=== PATIENT | female | born 1990 | race Caucasian/White ===

== ENCOUNTER 2020-06-03 17:42 | Inpatient (IN) | payer BC ==
[2020-06-03] MEDS ORDERED: RINGERS SOLUTION,LACTATED 1,000 ML IV PRN (17:54)
[2020-06-03] MEDS ORDERED: DINOPROSTONE 10 MG VAGINAL INSERT.SR PV ONE (18:15)
[2020-06-03] MEDS ORDERED: OXYTOCIN 10 UNIT/ML VIAL ONE (18:21)
[2020-06-03] MEDS ORDERED: LIDOCAINE 1% INJ-PF (10 MG/ML) 30 ML SDV ONE (18:22)
[2020-06-03] MEDS ORDERED: OXYTOCIN/0.9 % SODIUM CHLORIDE 30 UNIT/500 ML RTUINJ ONE (18:22)
[2020-06-03] MEDS ORDERED: MISOPROSTOL 0.2 MG TABLET ONE (18:22)
[2020-06-03] MEDS ORDERED: DINOPROSTONE 10 MG VAGINAL INSERT.SR ONE (18:41)
[2020-06-03 19:01] LABS: ABSOLUTE EOSINOPHILS # (AUTO) 0.1 10^3/uL (0.0-0.6); ABSOLUTE LYMPHOCYTES (AUTO) 1.6 10^3/uL (0.5-4.7); ABSOLUTE MONOCYTES (AUTO) 0.6 10^3/uL (0.1-1.4); ABSOLUTE NEUT (AUTO) 4.3 10^3/uL (1.7-8.2); BASOPHILS % (AUTO) 0.3 % (0-2); EOSINOPHILS % (AUTO) 1.8 % (0-6); HEMATOCRIT 35.4 % (36.0-47.0); HEMOGLOBIN 12.2 g/dL (12.0-15.5); LYMPHOCYTES % (AUTO) 23.9 % (13-45); MEAN CORPUSCULAR HEMOGLOBIN 30.9 pg (27.0-33.4); MEAN CORPUSCULAR HGB CONC 34.6 g/dL (32.0-36.0); MEAN CORPUSCULAR VOLUME 89 fl (80-97); MONOCYTES % (AUTO) 8.6 % (3-13); PLATELET COUNT 238 10^3/uL (150-450); RED BLOOD COUNT 3.96 10^6/uL (3.72-5.28); RED CELL DISTRIBUTION WIDTH 13.2 % (11.5-14.0); SEGMENTED NEUTROPHILS % (AUTO) 65.4 % (42-78); TOTAL CELLS COUNTED % (AUTO) 100 %; WHITE BLOOD COUNT 6.6 10^3/uL (4.0-10.5)
[2020-06-03 19:33] LABS: URINE AMPHETAMINES SCREEN NEGATIVE; URINE BARBITURATES SCREEN NEGATIVE; URINE BENZODIAZEPINES SCREEN NEGATIVE; URINE COCAINE SCREEN NEGATIVE; URINE MARIJUANA (THC) SCREEN NEGATIVE; URINE METHADONE SCREEN NEGATIVE; URINE PHENCYCLIDINE SCREEN NEGATIVE
--- NOTE | 2020-06-03 21:12 | Admission Physical ---
Datetime Report Generated by CPN: 06/03/2020 21:11 CURRENT ADMISSION Chief Complaint: Scheduled Induction of Labor Indication for Induction: Postterm Admit Plan: Admit to Unit; Initiate Labor Induction Protocol ALLERGIES Medication Allergies: No Medication Allergies: No Known Allergies (09/05/2015) Latex: No Latex Allergies OBSTETRICAL HISTORY EDC: 05/27/2020 00:00 : 1 Para: 0 Term: 0 : 0 SAB: 0 IAB: 0 Cesareans: 0 VBACs: 0 Gestational Diabetes: No Rh Sensitization: No Incompetent Cervix: No REA: No Infertility: No ART Treatment: No Uterine Anomaly: No IUGR: No Hx Previous C/S: No Macrosomia: No Hx Loss/Stillborn: No PIH: No Hx : No Placenta Previa/Abruption: No Depression/PP Depression: No PTL/PROM: No Post Hemorrhage: No Obstetrical History Comments: G1: current SEE RECORDS Alcohol: No Marijuana : No Cocaine: No Other Illicit Drugs: No Cigarettes: Never Smoker. 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 Heart Disease: No Hosp/Surgery: No Autoimmune Disorder: No Anesthetic Complications: No Kidney Disease: No Abnormal Pap Smear: No Neuro/Epilepsy: No Psychiatric Disorders: No Other Medical Diseases: No Hepatitis/Liver Disease: No Significant Family History: No Varicosities/Phlebitis: No Trauma/Violence : No Thyroid Dysfunction: No INFECTIOUS HISTORY Gonorrhea: No Genital Herpes: No Chlamydia: No Tuberculosis: No Syphilis: No Hepatitis: No HIV/AIDS Exposure: No Rash or Viral Illness: No HPV: Yes PHYSICAL EXAM General: Normal HEENT: Normal Neurologic: Normal Thyroid: Normal Heart: Normal Lungs: Normal Breast: Normal Back: Normal Abdomen: Normal Genitourinary Exam: Normal Extremities: Normal DTRs: Normal Pelvic Type: Adequate Vital Signs: Reviewed; Within Normal Limits VAGINAL EXAM Dilatation: 1 Effacement: 0 Station: -3 Contraction Comments: Irregular contractions MEMBRANES Membranes: Intact FETUS A EGA: 41.0 Monitoring: External US FHR- Baseline: 130 Variability: Moderate 6-25bpm Accelerations: 15X15 Presentation: Vertex Admit Comment: 30 yo G1 at 41 wks EGA here for IOL due to post dates -Admit to LDR -NPO except sips and chips. IVFs: LR @ 125 cc/hr -CEFM and toco -GBS negative -Cervix 1//hi, cervidil 10mg placed at 1830 -Desires epidural prn Pain -Anticipate PLANS FOR LABOR AND DELIVERY Labor and Delivery: None Pain Management: Medications; Epidural Feeding Preference: Breast Circumcision: Yes INFORMED CONSENT Informed Consent Obtained: Vaginal Delivery; Induction of Labor; Risks, Benefits and Alternatives Discussed Signature: with User ID: [email or web address] : with User ID: [email or web address]
[2020-06-04] MEDS ORDERED: PROMETHAZINE HCL INJ 25 MG/1 ML VIAL ONE ×2 (08:53→13:43)
[2020-06-04] MEDS ORDERED: NALBUPHINE HCL INJ 10 MG/1 ML AMPULE INJ ONE (08:53)
[2020-06-04] MEDS ORDERED: NALBUPHINE HCL INJ 10 MG/1 ML AMPULE ONE ×2 (08:53→13:43)
[2020-06-04] MEDS ORDERED: PROMETHAZINE HCL INJ 25 MG/1 ML VIAL IV ONE ×2 (08:54→13:49)
[2020-06-04] MEDS ORDERED: OXYTOCIN/0.9 % SODIUM CHLORIDE 30 UNIT/500 ML RTUINJ IV PRN ×2 (09:00→22:36)
[2020-06-04] MEDS ORDERED: NALBUPHINE HCL INJ 10 MG/1 ML AMPULE IM ONE (13:48)
[2020-06-04] MEDS ORDERED: NALBUPHINE HCL INJ 10 MG/1 ML AMPULE IV ONE (13:49)
[2020-06-04] MEDS ORDERED: FENTANYL/BUPIVACAINE/NS/PF 300 MCG/150 ML RTUINJ EPI ONE (14:42)
[2020-06-04] MEDS ORDERED: EPHEDRINE SULFATE INJ 50 MG/1 ML AMPULE ONE (14:42)
[2020-06-04] MEDS ORDERED: ROPIVACAINE HCL 0.2% INJ/PF (2 MG/ML) 20 ML SDV ONE (14:42)
--- NOTE | 2020-06-04 17:19 | Admission Physical ---
Datetime Report Generated by CPN: 06/04/2020 17:19 CURRENT ADMISSION Chief Complaint: Scheduled Induction of Labor Indication for Induction: Postterm Admit Impression : Postterm, Intrauterine Admit Plan: Admit to Unit; Initiate Labor Induction Protocol ALLERGIES Medication Allergies: No Medication Allergies: No Known Allergies (09/05/2015) Latex: No Latex Allergies OBSTETRICAL HISTORY EDC: 05/27/2020 00:00 : 1 Para: 0 Term: 0 : 0 SAB: 0 IAB: 0 Cesareans: 0 VBACs: 0 Gestational Diabetes: No Rh Sensitization: No Incompetent Cervix: No REA: No Infertility: No ART Treatment: No Uterine Anomaly: No IUGR: No Hx Previous C/S: No Macrosomia: No Hx Loss/Stillborn: No PIH: No Hx : No Placenta Previa/Abruption: No Depression/PP Depression: No PTL/PROM: No Post Hemorrhage: No Current Procedures: Ultrasound Obstetrical History Comments: G1: current SEE RECORDS Alcohol: No Marijuana : No Cocaine: No Other Illicit Drugs: No Cigarettes: Never Smoker. 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 Heart Disease: No Hosp/Surgery: No Autoimmune Disorder: No Anesthetic Complications: No Kidney Disease: No Abnormal Pap Smear: No Neuro/Epilepsy: No Psychiatric Disorders: No Other Medical Diseases: No Hepatitis/Liver Disease: No Significant Family History: No Varicosities/Phlebitis: No Trauma/Violence : No Thyroid Dysfunction: No INFECTIOUS HISTORY Gonorrhea: No Genital Herpes: No Chlamydia: No Tuberculosis: No Syphilis: No Hepatitis: No HIV/AIDS Exposure: No Rash or Viral Illness: No HPV: Yes PHYSICAL EXAM General: Normal HEENT: Normal Neurologic: Normal Thyroid: Deferred Heart: Normal Lungs: Normal Breast: Deferred Back: Normal Abdomen: Normal Genitourinary Exam: Normal Extremities: Normal DTRs: Normal Pelvic Type: Adequate Vital Signs: Reviewed; Within Normal Limits VAGINAL EXAM Dilatation: 2 Effacement: 50 Station: -2 Contraction Comments: q2-3 mins MEMBRANES Membranes: Ruptured Amniotic Fluid Color: Clear FETUS A EGA: 41.1 Monitoring: External US FHR- Baseline: 125 Variability: Moderate 6-25bpm Accelerations: 15X15 Decelerations: Late; Variable FHR Category: Category II Estimated Weight (gm): 4000 Presentation: Vertex Admit Comment: at 41w admitted for IOL, now on pitocin 8mu/min, AROM at 1545 for clear fluid. P: cont pitocin IOL, anticipate PLANS FOR LABOR AND DELIVERY Labor and Delivery: None Pain Management: Medications; Epidural Feeding Preference: Breast Circumcision: Yes INFORMED CONSENT Informed Consent Obtained: Vaginal Delivery; Induction of Labor; Risks, Benefits and Alternatives Discussed Assignment: Bere Marx MD Signature: with User ID: [email or web address] : with User ID: [email or web address]
[2020-06-04] MEDS ORDERED: DIPHENHYDRAMINE HCL 50 MG/ML VIAL IV ONE (19:00)
[2020-06-04] MEDS ORDERED: DIPHENHYDRAMINE HCL 50 MG/ML VIAL ONE (19:01)
[2020-06-04] MEDS ORDERED: CITRIC ACID/SODIUM CITRATE ORAL SOLN 15 ML UDCUP ONE (20:27)
[2020-06-04] MEDS ORDERED: CEFAZOLIN INJ 1 GM VIAL ONE (20:27)
--- NOTE | 2020-06-04 20:27 | Operative Report ---
Operative Report DATE OF SURGERY: 06/04/20 PREOPERATIVE DIAGNOSIS: , 41+1ega, Failed IOL for post dates, NRFHTs, Failed 1 hr GTT (passed 3 hr) POSTOPERATIVE DIAGNOSIS: AB - delivered OPERATION: Primary section SURGEON: JOHANNA WHITNEY ANESTHESIA: Epidural TISSUE REMOVED OR ALTERED: placenta and cord COMPLICATIONS: mild uterine atony - resolved with cytotec ESTIMATED BLOOD LOSS: 700 QUANTITATIVE BLOOD LOSS: 1,040 INTRAOPERATIVE FINDINGS: normal bilateral tubes/ovaries, normal uterus. Apgars 7/9. VMI delivered at 2138, weight 4015g (8#14oz). PROCEDURE: Anesthesia provider: [Dr. Guthrie] Estimated blood loss: [700ml] Urine output: [200ml] IV fluids: [600ml] Indications: [30yo at 41+1ega who was admitted for IOL on 06/03 for cervidil and underwent cervidil IOL then pitocin on AM on 06/04. AROM performed at 1545 and cervical exam was 6cm. HR then noted to have repetitive late decelerations that were not responsive to position changes and matenral O2. Pitocin also discontinued due to NRFHTs. NO improvement of FHR tracing. Reviewed recommendations for Primary section for NRFHTs. She was counseled on the risks, benefits, alternatives and desires to proceed with planned procedure. ] Procedure: The patient was taken to the operating room where spinal anesthesia was obtained and found to be adequate (on second attempt at spinal). She was then prepped and draped in the normal sterile fashion and placed in the dorsal supine position with a leftward tilt. A Pfannenstiel skin incision was then made and carried through to the underlying layers of the fascia with the scalpel. The fascia was incised in the midline and the incision extended laterally with the Sparks scissors. The superior aspect of the fascial incision was then grasped with Juvenal clamps elevated and the underlying rectus muscles dissected off [bluntly]. Attention was then turned to the inferior aspect of the fascial incision which in a similar fashion was grasped, tented up with Juvenal clamps, and the rectus muscles dissected off [bluntly]. The rectus muscles were then in the midline and the peritoneum at the amount identified and entered [bluntly]. The peritoneal incision was then extended superiorly and inferiorly with good visualization of the bladder. The bladder blade was inserted and the vesicouterine peritoneum identified grasped with [place] pickups and entered sharply with the Metzenbaum scissors. This incision was then extended laterally with the Metzenbaum scissors and a bladder flap created digitally. The bladder blade was then reinserted and the lower uterine segment incised in a transverse fashion with the scalpel. The uterine incision was then extended bluntly. The bladder blade was removed and the infant's head was delivered from cephalic presentation atraumatically. The nose and mouth were suctioned and the cord doubly clamped and cut. And the infant was handed off to waiting pediatricians. The placenta was then delivered spontaneously and the uterus exteriorized and cleared of all clots and debris. The uterine incision was then repaired with 1- 0 Vicryl in a running locked fashion. A second layer of the same suture was used to obtain hemostasis via imbrication of the initial layer. The bladder flap was then repaired with 3-0 chromic in a running fashion. The uterus was returned to the patient's abdomen and Surgicel placed for hemostasis. The gutters were cleared of all clots and debris. All operative sites were noted to be hemostatic. The fascia was reapproximated with 0 Vicryl in a running fashion from each lateral edge to the midline. The skin was closed with 3-0 Mon ocryl in a running subcuticular fashion with overlying Exofin for additional dressing as well as wound closure. The patient tolerated the procedure well. Sponge lap needle and instrument counts are correct times 2. 3 g of Ancef were given prior to skin incision. The patient was taken to the recovery area awake and in stable condition.
--- NOTE | 2020-06-04 20:30 | L&D Progress Notes ---
PROGRESS NOTES Datetime Report Generated by CPN: 06/04/2020 20:30 PROGRESS NOTE Impression: Non-reassuring Heart Rate Procedures: Sterile Vag Exam Plan: Deliver- Section Informed Consent Obtained: Section Delivery Vital Signs : Reviewed Comment: 41+1, here for IOL. She has been unchanged since 1545 and now with repetitive late decelerations despite interventions and discontinuation of pitocin. She was counseled and desreis to proceed with planned procedure of Primary section for NRFHTs. VAGINAL EXAM Dilatation: 2 Effacement: 50 Station: -2 Contractions: q2-3 mins LAST VAGINAL EXAM-NURSING Nursing Exam Dilitation: 6.0 Nursing Exam Effacement: 90 Nursing Exam Station: -2 MEMBRANES Membranes: Ruptured Amniotic Fluid Color: Clear FETUS A : 41+1 Estimated Weight (gm): 4000 Presentation: Vertex SIGNATURE SIGNATURE: [id number] Signature: with User ID: [email or web address]
[2020-06-04] MEDS ORDERED: CEFAZOLIN SODIUM 3 GM in DEXTROSE 5%-WATER 50 ML IV PRN (20:34)
[2020-06-04] MEDS ORDERED: ONDANSETRON HCL INJ/PF 4 MG/2 ML SDV ONE (20:47)
[2020-06-04] MEDS ORDERED: PHENYLEPHRINE HCL INJ/PF 10 MG/1 ML SDV ONE (20:48)
[2020-06-04] MEDS ORDERED: MIDAZOLAM 2 MG/2 ML INJ ONE (20:48)
[2020-06-04] MEDS ORDERED: OXYTOCIN 10 UNIT/ML VIAL ONE (20:48)
[2020-06-04] MEDS ORDERED: MISOPROSTOL 0.2 MG TABLET ONE (21:45)
[2020-06-04] MEDS ORDERED: BUPIVACAINE HCL 0.25 % INJ/PF (2.5 MG/1 ML) 30 ML VIAL ONE (22:18)
[2020-06-04] MEDS ORDERED: FENTANYL CITRATE INJ/PF 100 MCG/2 ML AMPUL ONE (22:29)
[2020-06-04] MEDS ORDERED: HYDROMORPHONE HCL INJ/PF 2 MG/ML AMPULE IV PRN (22:36)
[2020-06-04] MEDS ORDERED: OXYCODONE-ACETAMINOPHEN 5-325 MG TABLET PO PRN ×2 (22:36)
[2020-06-04] MEDS ORDERED: ACETAMINOPHEN 1,000 MG/100 ML RTUPB IV PRN (22:36)
[2020-06-04] MEDS ORDERED: MEASLES,MUMPS&RUBELLA VACC/PF 0.5 ML VIAL SUBCUT PRN (22:36)
[2020-06-04] MEDS ORDERED: SIMETHICONE 80 MG TAB.CHEW PO PRN (22:36)
[2020-06-04] MEDS ORDERED: ACETAMINOPHEN 325 MG TABLET PO PRN (22:36)
[2020-06-04] MEDS ORDERED: DIPH/PERTUSS(ACELL)/TETANUS VAC/PF 0.5 ML SYR (>=10YO) IM PRN (22:36)
[2020-06-04] MEDS ORDERED: RINGERS SOLUTION,LACTATED 1,000 ML IV PRN (22:36)
[2020-06-04] MEDS ORDERED: PROMETHAZINE HCL INJ 25 MG/1 ML VIAL IV PRN (22:36)
[2020-06-04] MEDS ORDERED: MISOPROSTOL 0.2 MG TABLET PR ONE (22:39)
[2020-06-05] MEDS ORDERED: NIFEDIPINE 30 MG TAB.ER.24 PO ONE ×2 (00:15→00:17)
[2020-06-05] MEDS ORDERED: AMPICILLIN SOD/SULBACTAM 3 GM VIAL ONE ×2 (00:17→06:12)
[2020-06-05] MEDS ORDERED: AMPICILLIN SOD/SULBACTAM 3 GM VIAL IV PRN (00:18)
[2020-06-05] MEDS: AMPICILLIN SODIUM/SULBACTAM NA 3 GM in NORMAL SALINE 100 ML IV SCH ×4 (01:27→18:31)
[2020-06-05] MEDS ORDERED: AMPICILLIN SOD/SULBACTAM 3 GM VIAL IV SCH (06:00)
[2020-06-05] MEDS: KETOROLAC TROMETHAMINE INJ/PF 30 MG/1 ML SDV IV SCH ×3 (06:17→22:08)
[2020-06-05 07:48] LABS: HEMATOCRIT 31.6 % (36.0-47.0); HEMOGLOBIN 10.8 g/dL (12.0-15.5); MEAN CORPUSCULAR HEMOGLOBIN 30.6 pg (27.0-33.4); MEAN CORPUSCULAR HGB CONC 34.3 g/dL (32.0-36.0); MEAN CORPUSCULAR VOLUME 89 fl (80-97); PLATELET COUNT 210 10^3/uL (150-450); RED BLOOD COUNT 3.54 10^6/uL (3.72-5.28); RED CELL DISTRIBUTION WIDTH 13.3 % (11.5-14.0)
[2020-06-05 07:51] LABS: WHITE BLOOD COUNT 14.7 10^3/uL (4.0-10.5)
[2020-06-05] MEDS: PRENATAL VITAMIN W DHA CAPSULE PO SCH (11:11)
[2020-06-05] MEDS: NIFEDIPINE 30 MG TAB.ER.24 PO SCH (11:11)
[2020-06-05] MEDS: DOCUSATE SODIUM 100 MG CAPSULE PO SCH ×2 (11:11→18:30)
--- NOTE | 2020-06-05 12:48 | PDOC PROGRESS REPORT ---
Subjective-OB Progress Note for:: 06/05/20 Subjective: reports bleeding slowing, pain controlled with current meds. denies needs Physical Exam (OB) Vital Signs: Temp Pulse Resp BP Pulse Ox 98.1 F 93 18 145/84 H 94 06/05/20 11:07 06/05/20 11:07 06/05/20 11:07 06/05/20 11:07 06/05/20 11:07 Intake & Output 06/04/20 06/05/20 06/06/20 06:59 06:59 06:59 Intake Total 100 Output Total 1400 600 Balance -1300 -600 Weight 121 kg - Dressing Removed: No Incision: Well Approximated Closure Type: Surgical Glue - Maternal Morbidity 59. Maternal Morbidity (serious complications experinced by the mother associated with labor and delivery: None of the above - Abdomen Description: Tender, Soft Hernia Present: No Fundal Description: Firm, Midline Fundal Height: u/u - u/2 - Abdominal Distension: No distension - Extremities Lower extremities: Lennie's sign - neg Objective-Diagnostic Laboratory: 06/05/20 07:29 06/05/20 07:29 WBC 14.7 H D RBC 3.54 L Hgb 10.8 L Hct 31.6 L MCV 89 MCH 30.6 MCHC 34.3 RDW 13.3 Plt Count 210 Assessment and Plan(PN) - Time Spent with Patient Time with patient: Less than 15 minutes - Disposition Anticipated Discharge Disposition: Home, Self Care Anticipated Discharge Timeframe: within 48 hours
[2020-06-05] MEDS ORDERED: DIBUCAINE 1% OINTMENT 28 GM PR PRN (22:20)
[2020-06-05] MEDS ORDERED: GLYCERIN/WITCH HAZEL LEAF 1 EACH MED..WIPE TP PRN (22:20)
[2020-06-06] MEDS: AMPICILLIN SODIUM/SULBACTAM NA 3 GM in NORMAL SALINE 100 ML IV SCH ×3 (00:21→12:44)
[2020-06-06] MEDS: IBUPROFEN 800 MG TABLET PO SCH ×2 (05:49→13:12)
[2020-06-06] MEDS: NIFEDIPINE 30 MG TAB.ER.24 PO SCH (09:24)
[2020-06-06] MEDS: DOCUSATE SODIUM 100 MG CAPSULE PO SCH (09:24)
[2020-06-06] MEDS: PRENATAL VITAMIN W DHA CAPSULE PO SCH (09:24)
[2020-06-06 11:30] VITALS: BP 133/81
--- NOTE | 2020-06-06 12:31 | PDOC DISCHARGE SUMMARY ---
Impression - Admit/DC Date/PCP Admission Date/Primary Care Provider: 06/03/20 17:42 JOHANNA WHITNEY MD Discharge Date: 06/06/20 - Discharge Diagnosis (1) Encounter for planned induction of labor Is this a current diagnosis for this admission?: Yes (2) Non-reassuring electronic monitoring tracing Is this a current diagnosis for this admission?: Yes (3) Obesity affecting Is this a current diagnosis for this admission?: Yes (4) Post-dates Is this a current diagnosis for this admission?: Yes (5) Status post primary low transverse section Is this a current diagnosis for this admission?: Yes - Additional Information Discharge Diet: Regular Discharge Activity: Balance Activity w/Rest, No Lifting Over 10 Pounds, No Lifting/Push/Pulling, Pelvic Rest, No tub bath Referrals: JOHANNA WHITNEY MD [Primary Care Provider] - Prescriptions: Ibuprofen [Motrin 800 mg Tablet] 800 mg PO Q8HP PRN #90 tablet PRN Reason: Oxycodone HCl/Acetaminophen [Percocet 5-325 mg Tablet] 1 tab PO Q4HP PRN #90 tablet PRN Reason: Nifedipine [Procardia XL 30 mg Tablet] 30 mg PO DAILY #30 tab.er.24 Home Medications: Vits96/Iron Fum/Folic [ Tablet] 1 each PO DAILY 06/03/20 Docusate Sodium [Colace 100 mg Capsule] 100 mg PO BID capsule 06/06/20 Ibuprofen [Motrin 800 mg Tablet] 800 mg PO Q8HP PRN #90 tablet 06/06/20 Nifedipine [Procardia XL 30 mg Tablet] 30 mg PO DAILY #30 tab.er.24 06/06/20 Oxycodone HCl/Acetaminophen [Percocet 5-325 mg Tablet] 1 tab PO Q4HP PRN #90 tablet 06/06/20 Hospital Course 59. Maternal Morbidity (serious complications experinced by the mother associated with labor and delivery: None of the above Results Laboratory Results: WBC 14.7 10^3/uL (4.0-10.5) H D 06/05/20 07:29 RBC 3.54 10^6/uL (3.72-5.28) L 06/05/20 07:29 Hgb 10.8 g/dL (12.0-15.5) L 06/05/20 07:29 Hct 31.6 % (36.0-47.0) L 06/05/20 07: MCV 89 fl (80-97) 06/05/20 07: MCH 30.6 pg (27.0-33.4) 06/05/20 07: MCHC 34.3 g/dL (32.0-36.0) 06/05/20 07: RDW 13.3 % (11.5-14.0) 06/05/20 07: Plt Count 210 10^3/uL (150-450) 06/05/20 07: Lymph % (Auto) 23.9 % (13-45) 06/03/20 18:19 [place] % (Auto) 8.6 % (3-13) 06/03/20 18:19 Eos % (Auto) 1.8 % (0-6) 06/03/20 18: Baso % (Auto) 0.3 % (0-2) 06/03/20 18:19 Absolute Neuts (auto) 4.3 10^3/uL (1.7-8.2) 06/03/20 18:19 Absolute Lymphs (auto) 1.6 10^3/uL (0.5-4.7) 06/03/20 18:19 Absolute Monos (auto) 0.6 10^3/uL (0.1-1.4) 06/03/20 18:19 Absolute Eos (auto) 0.1 10^3/uL (0.0-0.6) 06/03/20 18:19 Absolute Basos (auto) 0.0 10^3/uL (0.0-0.2) 06/03/20 18:19 Seg Neutrophils % 65.4 % (42-78) 06/03/20 18:19 Urine Opiates Screen NEGATIVE 06/03/20 18:00 Urine Methadone Screen NEGATIVE 06/03/20 18:00 Ur Barbiturates Screen NEGATIVE 06/03/20 18:00 Ur Phencyclidine Scrn NEGATIVE 06/03/20 18:00 Ur Amphetamines Screen NEGATIVE 06/03/20 18:00 U Benzodiazepines Scrn NEGATIVE 06/03/20 18:00 Urine Cocaine Screen NEGATIVE 06/03/20 18:00 U Marijuana (THC) Screen NEGATIVE 06/03/20 18:00 RPR NONREACTIVE (NONREACTIVE) 06/03/20 18:19 Blood Type O POSITIVE 06/03/20 18:19 Antibody Screen NEGATIVE 06/03/20 18:19 Plan Plan of Treatment: follow up in one week for incision check and BP check
== END 2020-06-06 15:00 | disposition home or self-care (01) | DRG 788 ==
LOC: LR 17:42 → 2S 06-05 00:28
PROVIDERS: ADMIT Obstetrics & Gynecology; ATTEND Obstetrics & Gynecology
PROC: 10D00Z1 Extraction of Products of Conception, Low, Open Approach (ICD-10-PCS; principal; 2020-06-04)
PROC: 3E0P7VZ Introduction of Hormone into Female Reproductive, Via Natural or Artificial Opening (ICD-10-PCS; 2020-06-04)
DX: O48.0 Post-term pregnancy (principal); O76 Abnormality in fetal heart rate and rhythm complicating labor and delivery; O99.214 Obesity complicating childbirth; O99.814 Abnormal glucose complicating childbirth; Z79.899 Other long term (current) drug therapy; Z3A.41 41 weeks gestation of pregnancy; Z37.0 Single live birth
CPT/HCPCS: 1967; 1968; 36415; 59025; 64486; 76942; 80307; 85025; 85027; 86592; 86850; 86900; 86901; 88307; 94799; J0295; J0690; J1170; J1200; J1885; J2250; J2300; J2370; J2405; J2550; J2590; J2795; J3010; J3490; J7050; J7120